=== PATIENT | male | born 1965 | race Hispanic/Latino ===

== ENCOUNTER 2021-07-19 17:02 | Inpatient (IN) | payer SELFPAY ==
[2021-07-19 20:41] VITALS: BMI 31.1
[2021-07-19] MEDS ORDERED: Ondansetron PF 4 MG/2 ML Vial IVP PRN (22:00)
[2021-07-19] MEDS ORDERED: Acetaminophen 325 MG TAB PO PRN (22:00)
[2021-07-19] MEDS ORDERED: HYDROcodone/Acetaminophen 5/325 mg Tablet PO PRN (22:00)
[2021-07-19] MEDS ORDERED: Enoxaparin Sodium 40 MG/0.4 ML SYRINGE SC SCH (22:00)
[2021-07-19] MEDS ORDERED: Pharmacy to Dose REMDESIVIR IVPB PRN (22:03)
[2021-07-20 08:12] LABS: Anion Gap 16 mmol/L (10-20); BUN (Urea Nitrogen) 26 mg/dL (8.4-25.7); Calc. Creatinine Clearance 132 mL/min (70-130); Calcium 8.2 mg/dL (7.8-10.44); Carbon Dioxide 22 mmol/L (22-29); Chloride 108 mmol/L (98-107); Glucose 96 mg/dL (70-105); Potassium 4.9 mmol/L (3.5-5.1); Sodium 141 mmol/L (136-145)
[2021-07-20 08:36] LABS: Hemoglobin 14.6 g/dL (14.0-18.0); Mean Corpuscular HGB CONC 31.5 g/dL (32.0-36.0); Mean Corpuscular Volume 89.1 fL (78.0-98.0); Mean Platelet Volume 7.2 fL (7.4-10.4); Platelet Count 337 thou/uL (130-400); White Blood Cell (WBC) Count 9.5 thou/uL (4.8-10.8)
[2021-07-20] MEDS: Zinc Sulfate 220 MG CAP PO SCH (08:43)
[2021-07-20] MEDS: Cholecalciferol (Vitamin D3) 400 UNITS TAB PO SCH (08:43)
[2021-07-20] MEDS: Ascorbic Acid 500 mg Chewable Tablet PO SCH (08:43)
[2021-07-20] MEDS: Dexamethasone 10 MG/ML VIAL SLOW IVP SCH ×2 (08:44→20:45)
[2021-07-20 08:59] LABS: MDiff Complete? YES
[2021-07-20 09:00] LABS: Band 8 % (5-11); Eosinophils 1 % (0-10); Lymphocytes 13 % (21-51); Monocytes 8 % (0-10); Myelocyte 2 % (0-0); Neutrophil 67 % (42-75); Platelet Morphology Comment Appears Adequate; RBC Morphology Normal; Reactive Lymphocytes 1 % (0-10)
[2021-07-20] MEDS ORDERED: FLU VACC QS2021-22(6MOS UP)/PF 60 MCG/0.5 ML SYRINGE IM ONE (09:00)
[2021-07-20] MEDS ORDERED: Prevnar 13-Val Conj/PF 0.5 ML SYRINGE IM ONE (09:00)
[2021-07-20] MEDS: Benzonatate 100 MG CAP PO PRN (17:25)
[2021-07-20] MEDS: Guaifenesin DM 100-10/5 ML UDCUP PO PRN (17:25)
[2021-07-20] MEDS: Enoxaparin Sodium 40 MG/0.4 ML SYRINGE SC SCH (20:44)
[2021-07-21] MEDS: Benzonatate 100 MG CAP PO PRN ×2 (08:43→21:18)
[2021-07-21] MEDS: Guaifenesin DM 100-10/5 ML UDCUP PO PRN (08:43)
[2021-07-21] MEDS: Zinc Sulfate 220 MG CAP PO SCH (08:43)
[2021-07-21] MEDS: Cholecalciferol (Vitamin D3) 400 UNITS TAB PO SCH (08:43)
[2021-07-21] MEDS: Ascorbic Acid 500 mg Chewable Tablet PO SCH (08:43)
[2021-07-21] MEDS: Dexamethasone 10 MG/ML VIAL SLOW IVP SCH ×2 (08:44→20:50)
[2021-07-21] MEDS ORDERED: BARICITINIB 2 MG TAB PO SCH (09:00)
[2021-07-21 10:17] LABS: Hemoglobin 14.8 g/dL (14.0-18.0); Mean Corpuscular HGB CONC 32.2 g/dL (32.0-36.0); Mean Corpuscular Hemoglobin 28.6 pg (27.0-31.0); Mean Corpuscular Volume 88.9 fL (78.0-98.0); Mean Platelet Volume 7.2 fL (7.4-10.4); Platelet Count 433 thou/uL (130-400); RBC Distribution Width 12.8 % (11.5-14.5); Red Blood Cell (RBC) Count 5.18 mill/uL (4.70-6.10); White Blood Cell (WBC) Count 24.1 thou/uL (4.8-10.8)
[2021-07-21 10:41] LABS: ALT (SGPT) 59 U/L (8-55); AST (SGOT) 33 U/L (5-34); Albumin 3.1 g/dL (3.5-5.0); Alkaline Phosphatase 74 U/L (40-110); Anion Gap 17 mmol/L (10-20); BUN (Urea Nitrogen) 26 mg/dL (8.4-25.7); Bilirubin, Total 0.4 mg/dL (0.2-1.2); CRP (Inflammatory) 16.68 mg/dL (= or < 0.5); Calc. Creatinine Clearance 124 mL/min (70-130); Calcium 8.4 mg/dL (7.8-10.44); Carbon Dioxide 20 mmol/L (22-29); Chloride 107 mmol/L (98-107); Globulin 3.7 g/dL (2.4-3.5); Glucose 239 mg/dL (70-105); Potassium 4.5 mmol/L (3.5-5.1); Protein, Total 6.8 g/dL (6.0-8.3); Sodium 139 mmol/L (136-145)
[2021-07-21 11:17] LABS: Band 24 % (5-11); Lymphocytes 4 % (21-51); MDiff Complete? YES; Metamyelocyte 1 % (0-0); Monocytes 1 % (0-10); Myelocyte 1 % (0-0); Neutrophil 69 % (42-75); Platelet Morphology Comment Appears Increased; RBC Morphology Normal
[2021-07-21] MEDS ORDERED: REMDESIVIR 200 MG in Sodium Chloride 0.9% 250 ML 210 ML IV SCH (18:30)
[2021-07-21] MEDS: Enoxaparin Sodium 40 MG/0.4 ML SYRINGE SC SCH (20:50)
[2021-07-22] MEDS: Zinc Sulfate 220 MG CAP PO SCH (08:10)
[2021-07-22] MEDS: Docusate 100 MG CAP PO SCH ×2 (08:10→21:36)
[2021-07-22] MEDS: Dexamethasone 10 MG/ML VIAL SLOW IVP SCH ×2 (08:10→21:33)
[2021-07-22] MEDS: Ascorbic Acid 500 mg Chewable Tablet PO SCH (08:10)
[2021-07-22] MEDS: Benzonatate 100 MG CAP PO PRN (08:10)
[2021-07-22] MEDS: Cholecalciferol (Vitamin D3) 400 UNITS TAB PO SCH (08:10)
[2021-07-22] MEDS ORDERED: Dextrose 5% in Water 1,000 ML IV PRN (11:30)
[2021-07-22] MEDS ORDERED: Dextrose 50% Abboject 50 ML SYRINGE SLOW IVP PRN (11:30)
[2021-07-22 11:31] LABS: ALT (SGPT) 71 U/L (8-55); AST (SGOT) 30 U/L (5-34); Albumin 3.1 g/dL (3.5-5.0); Alkaline Phosphatase 78 U/L (40-110); Anion Gap 12 mmol/L (10-20); BUN (Urea Nitrogen) 27 mg/dL (8.4-25.7); Bilirubin, Total 0.3 mg/dL (0.2-1.2); Calc. Creatinine Clearance 145 mL/min (70-130); Calcium 8.7 mg/dL (7.8-10.44); Carbon Dioxide 21 mmol/L (22-29); Chloride 108 mmol/L (98-107); Globulin 3.4 g/dL (2.4-3.5); Glucose 265 mg/dL (70-105); Potassium 4.4 mmol/L (3.5-5.1); Protein, Total 6.5 g/dL (6.0-8.3); Sodium 137 mmol/L (136-145)
[2021-07-22 12:36] LABS: Hemoglobin 14.5 g/dL (14.0-18.0)
[2021-07-22] MEDS: REMDESIVIR 100 MG in Sodium Chloride 0.9% 250 ML 230 ML IV SCH (21:31)
[2021-07-22] MEDS: Guaifenesin DM 100-10/5 ML UDCUP PO PRN (21:31)
[2021-07-22] MEDS: HumaLOG 300 UNITS/3 ML VIAL SC PRN (21:34)
[2021-07-22] MEDS: Enoxaparin Sodium 40 MG/0.4 ML SYRINGE SC SCH (21:35)
[2021-07-23] MEDS: HumaLOG 300 UNITS/3 ML VIAL SC PRN ×3 (06:16→21:27)
[2021-07-23 08:30] LABS: #Lymphocytes 1.1 thou/uL (1.20-3.40); #Monocytes 0.8 thou/uL (0.11-0.59); %Basophils 0.2 % (0.0-1.0); %Eosinophils 0.2 % (0.0-10.0); %Lymphocytes 6.2 % (21.0-51.0); %Monocytes 4.6 % (0.0-10.0); %Neutrophils 88.8 % (42.0-75.0); Hemoglobin 14.8 g/dL (14.0-18.0); Mean Corpuscular HGB CONC 31.5 g/dL (32.0-36.0); Mean Corpuscular Hemoglobin 28.5 pg (27.0-31.0); Mean Corpuscular Volume 90.6 fL (78.0-98.0); Mean Platelet Volume 7.3 fL (7.4-10.4); Platelet Count 493 thou/uL (130-400); RBC Distribution Width 12.7 % (11.5-14.5); Red Blood Cell (RBC) Count 5.19 mill/uL (4.70-6.10)
[2021-07-23 08:40] LABS: ALT (SGPT) 79 U/L (8-55); AST (SGOT) 27 U/L (5-34); Albumin 3.1 g/dL (3.5-5.0); Alkaline Phosphatase 73 U/L (40-110); Anion Gap 14 mmol/L (10-20); BUN (Urea Nitrogen) 23 mg/dL (8.4-25.7); Bilirubin, Total 0.3 mg/dL (0.2-1.2); CRP (Inflammatory) 2.96 mg/dL (= or < 0.5); Calc. Creatinine Clearance 149 mL/min (70-130); Calcium 8.4 mg/dL (7.8-10.44); Carbon Dioxide 18 mmol/L (22-29); Chloride 109 mmol/L (98-107); Globulin 3.3 g/dL (2.4-3.5); Glucose 156 mg/dL (70-105); Potassium 4.6 mmol/L (3.5-5.1); Protein, Total 6.4 g/dL (6.0-8.3); Sodium 136 mmol/L (136-145)
[2021-07-23] MEDS: Cholecalciferol (Vitamin D3) 400 UNITS TAB PO SCH (08:49)
[2021-07-23] MEDS: Benzonatate 100 MG CAP PO PRN (08:49)
[2021-07-23] MEDS: Dexamethasone 10 MG/ML VIAL SLOW IVP SCH ×2 (08:49→20:44)
[2021-07-23] MEDS: Docusate 100 MG CAP PO SCH ×3 (08:49→20:44)
[2021-07-23] MEDS: Ascorbic Acid 500 mg Chewable Tablet PO SCH (08:49)
[2021-07-23] MEDS: Guaifenesin DM 100-10/5 ML UDCUP PO PRN ×2 (08:49→21:22)
[2021-07-23] MEDS: Zinc Sulfate 220 MG CAP PO SCH (08:49)
[2021-07-23] MEDS: Enoxaparin Sodium 40 MG/0.4 ML SYRINGE SC SCH (20:45)
[2021-07-23] MEDS: REMDESIVIR 100 MG in Sodium Chloride 0.9% 250 ML 230 ML IV SCH (20:45)
[2021-07-24] MEDS: Dexamethasone 10 MG/ML VIAL SLOW IVP SCH ×2 (08:09→20:54)
[2021-07-24] MEDS: Zinc Sulfate 220 MG CAP PO SCH (08:09)
[2021-07-24] MEDS: Ascorbic Acid 500 mg Chewable Tablet PO SCH (08:09)
[2021-07-24] MEDS: Cholecalciferol (Vitamin D3) 400 UNITS TAB PO SCH (08:09)
[2021-07-24] MEDS: Guaifenesin DM 100-10/5 ML UDCUP PO PRN ×2 (08:10→21:24)
[2021-07-24] MEDS: Docusate 100 MG CAP PO SCH ×2 (08:10→20:53)
[2021-07-24] MEDS: Benzonatate 100 MG CAP PO PRN (08:10)
[2021-07-24] MEDS: HumaLOG 300 UNITS/3 ML VIAL SC PRN ×2 (10:51→16:48)
[2021-07-24] MEDS: Enoxaparin Sodium 40 MG/0.4 ML SYRINGE SC SCH (20:53)
[2021-07-24] MEDS: REMDESIVIR 100 MG in Sodium Chloride 0.9% 250 ML 230 ML IV SCH (20:54)
[2021-07-25] MEDS: Docusate 100 MG CAP PO SCH ×2 (08:08→21:23)
[2021-07-25] MEDS: Dexamethasone 10 MG/ML VIAL SLOW IVP SCH ×2 (08:08→21:23)
[2021-07-25] MEDS: Benzonatate 100 MG CAP PO PRN ×2 (08:08→16:44)
[2021-07-25] MEDS: Ascorbic Acid 500 mg Chewable Tablet PO SCH (08:08)
[2021-07-25] MEDS: Cholecalciferol (Vitamin D3) 400 UNITS TAB PO SCH (08:08)
[2021-07-25] MEDS: Zinc Sulfate 220 MG CAP PO SCH (08:08)
[2021-07-25] MEDS: HumaLOG 300 UNITS/3 ML VIAL SC PRN (12:02)
[2021-07-25] MEDS: Guaifenesin DM 100-10/5 ML UDCUP PO PRN (12:03)
[2021-07-25] MEDS: Enoxaparin Sodium 40 MG/0.4 ML SYRINGE SC SCH (21:23)
[2021-07-25] MEDS: REMDESIVIR 100 MG in Sodium Chloride 0.9% 250 ML 230 ML IV SCH (21:23)
[2021-07-26] MEDS: Guaifenesin DM 100-10/5 ML UDCUP PO PRN (06:03)
[2021-07-26] MEDS: Benzonatate 100 MG CAP PO PRN (08:03)
[2021-07-26] MEDS: Cholecalciferol (Vitamin D3) 400 UNITS TAB PO SCH (08:03)
[2021-07-26] MEDS: Dexamethasone 10 MG/ML VIAL SLOW IVP SCH (08:03)
[2021-07-26] MEDS: Docusate 100 MG CAP PO SCH (08:03)
[2021-07-26] MEDS: Zinc Sulfate 220 MG CAP PO SCH (08:03)
[2021-07-26] MEDS: Ascorbic Acid 500 mg Chewable Tablet PO SCH (08:03)
[2021-07-26 08:54] VITALS: BP 125/79; TEMP 97.6
== END 2021-07-26 11:47 | disposition home or self-care (01) | DRG 177 ==
LOC: T4-B 17:02
PROVIDERS: ADMIT Internal Medicine; ATTEND Internal Medicine
PROC: 8E0ZXY6 Isolation (ICD-10-PCS; 2021-07-19)
PROC: XW033E5 Introduction of Remdesivir Anti-infective into Peripheral Vein, Percutaneous Approach, New Technology Group 5 (ICD-10-PCS; principal; 2021-07-21)
DX: U07.1 COVID-19 (principal); J12.82 Pneumonia due to coronavirus disease 2019; J96.01 Acute respiratory failure with hypoxia; K92.1 Melena; I10 Essential (primary) hypertension; R73.9 Hyperglycemia, unspecified; T38.0X5A Adverse effect of glucocorticoids and synthetic analogues, initial encounter
CPT/HCPCS: 36415; 36416; 80048; 80053; 82274; 85014; 85018; 85025; 86140; J1100; J1650; J1815; J7050